=== PATIENT | male | born 1985 | race Caucasian/White ===

== ENCOUNTER 2021-04-05 08:09 | Emergency (ER) | payer OTHER ==
[~2021-04-05] VITALS: Ht 188 cm; Wt 111.1 kg
[2021-04-05] MEDS ORDERED: VITAMIN D310 MC2 PO (08:17)
[2021-04-05] MEDS ORDERED: FISH OIL 1,0001 EAC9 PO (08:17)
[2021-04-05] MEDS ORDERED: HYDROCODON-ACE1 EAC7 PO (09:27)
[2021-04-05] MEDS ORDERED: FLEXERIL PO (09:27)
[2021-04-05 09:53] VITALS: BP 159/78
== END 2021-04-05 09:53 | disposition home or self-care (01) ==
LOC: M.ERS 08:09
DX: S16.1XXA Strain of muscle, fascia and tendon at neck level, initial encounter (principal); T14.8XXA Other injury of unspecified body region, initial encounter; Z79.899 Other long term (current) drug therapy; V87.7XXA Person injured in collision between other specified motor vehicles (traffic), initial encounter; Y93.89 Activity, other specified; Y92.89 Other specified places as the place of occurrence of the external cause; Y99.8 Other external cause status